=== PATIENT | male | born 1975 | race Caucasian/White ===

== ENCOUNTER 2020-11-26 16:36 | Emergency (ER) | payer MEDICAID, SELFPAY ==
[2020-11-26 16:45] VITALS: BP 140/95; PULSE 103; RESP 16; TEMP 37.2; O2SAT 97
--- NOTE | 2020-11-26 17:30 | W.ED.GENAD ---
Discharge Plan Disposition Patient Disposition: HOME Condition: Stable Discharge Details Clinical Impression: Cellulitis Primary Care Provider: Unknown,Unknown ED Provider: Linda Rider Home Meds and New Rx's Prescriptions: New cephalexin 500 mg capsule 500 mg PO QID 5 Days Qty: 20 RF: 0 sulfamethoxazole-trimethoprim [Bactrim DS] 800-160 mg tablet 1 tab PO BID 5 Days Qty: 10 RF: 0 No Action fluticasone propion-salmeterol [Advair Diskus] 250-50 mcg/dose Blister With Device 2 inh INHALATION BID RF: 0 albuterol 90 mcg/actuation Aerosol 90 mcg INHALATION RF: 0 Discharge Instructions Instructions: Cellulitis (ED) Additional Instructions: Area concerning for skin infection. Please take antibiotics as prescribed. Even if symptoms improve, please take the entire course. I would like for you to be reevaluated by your primary care either or Wednesday. If you are unable to be seen there, please return to the emergency department for reevaluation. If you develop fever/chills, spreading of the redness or other new/worsening symptoms please seek care urgently once again. Referrals: Milena Harmon [ [facility] STAFF PHYSICIAN] - Discharge Data Discharge Date/Time-TO BE ENTERED AT DEPARTURE: 11/26/20 17:45 Medical Decision Making Patient is a pleasant 45-year-old male presenting today with chief complaint of erythema and wound to the left elbow that spread up his left medial upper arm. States that he noticed this yesterday. Has bruising lateral to this where he was injured while playing with his son. States he may have had a small break in danyelle skin during that time. He has had no fevers/chills or systemic symptoms. Has noted that the erythema is streaking proximally. On exam, he appears nontoxic. 2+ distal pulses. Full ROM. He has an area of eryhtema with streaking proximally that begins inferior to the flexor side of the elbow . No swelling or fluctuacne to suggest abscess. Exam is not consistent with septicemia, infected joint or abscess. Discussed concern for cellulitis with the patient. Will cover with bactrim and keflex. I am concerned with how quickly he is reporting this is spreading. Will trial PO abx but advised f/u with PCP or reevaluation here in the next 2 days. Strict return precautions given. All of his questions and concerns were addressed, he is in agreement with this plan. HPI General Mode of arrival: ambulatory. Date/Time Provider Initiated Documentation: 11/26/20 17:30. Limitations to Documentation: no limitations. Information obtained by: patient and RN notes reviewed. History of Present Illness 45 year old M presents to the emergency department with the chief complaint of left arm cellulitis, described as moderate, Quality is described as aching, and is localized to the left and upper extremity. Patient extremity (proximally). Patient started experiencing this day(s) (1) and it has been constant. No relieving factors improve symptom(s), No exacerbating factors reported . Patient notes no other symptoms. and rash; denies fever/chills. Patient did receive the following treatments prior to arrival, none Related Data Home Medications Medication Instructions Recorded Confirmed albuterol 90 mcg INHALATION 11/26/20 cephalexin 500 mg PO QID 5 Days #20 cap 11/26/20 fluticasone propion-salmeterol 2 inh INHALATION BID 11/26/20 11/26/20 [Advair Diskus] sulfamethoxazole-trimethoprim 1 tab PO BID 5 Days #10 tab 11/26/20 [Bactrim DS] Previous Rx's Medication Instructions Recorded cephalexin 500 mg PO QID 5 Days #20 cap 11/26/20 sulfamethoxazole-trimethoprim 1 tab PO BID 5 Days #10 tab 11/26/20 [Bactrim DS] Allergies Allergy/AdvReac Type Severity Reaction Status Date / Time No Known Allergies Allergy Unverified 11/26/20 16:53 General Stated Complaint: Cellulitis NANCY: 4 Review of Systems Constitutional Constitutional: Reports as per HPI, Denies chills and Denies fever(s) Musculoskeletal Musculoskeletal: Reports as per HPI Integumentary/Breasts Skin/Breast: Reports as per HPI Neurologic Neurologic: Reports as per HPI, Denies sensory deficit and Denies paresthesias [facility] Social History Smoking/Tobacco Use Status: Current every day Smoking risk assessment performed?: Yes Alcohol Intake: former Drug use: Never Substance use type: does not use Do you feel safe at home: Yes Exam Const General: cooperative, healthy appearing, comfortable, no acute distress and well developed Nutritional Appearance: average body habitus and well nourished Orientation: alert and awake Resp Effort & Inspection: normal respiratory effort, able to speak in complete sentences and no respiratory distress Auscultation: clear to auscultation bilaterally Cardio Rate: regular rate Rhythm: regular rhythm Heart Sounds: S1 normal and S2 normal Skin General skin exam: erythema Neuro General: patient alert and patient awake Cognition: normal cognition Speech: speech normal Gait: normal gait Sensory Exam: no sensory deficits noted Extrem Shoulder/upper arm images: 1. Area of erythemea. Dominga cuadras bruising lateral to this, does not touch this area. In the distal more central area of the erythema is a raised area that is white. Looks similar to a blister. No purulent discharge, empty of fluid. No area of fluctuance to suggest a abscess. Area of streaking moving proximally toward the axilla Psych Appearance: grossly normal and well kempt Mental Status: mental status grossly normal Speech and Movement: speech and movement normal Course Vital Signs Vital signs: Vital Signs Temperature 37.2 C 11/26/20 16:45 Pulse 103 H 11/26/20 16:45 Respiratory Rate 16 11/26/20 16:45 Blood Pressure 140/95 H 11/26/20 16:45 Pulse Oximetry 97 11/26/20 16:45 Temperature 37.2 C 11/26/20 16:45 Temperature Source Skin 11/26/20 16:45 Pulse 103 H 11/26/20 16:45 Respiratory Rate 16 11/26/20 16:45 Blood Pressure 140/95 H 11/26/20 16:45 Blood Pressure Position Sitting 11/26/20 16:45 Pulse Oximetry 97 11/26/20 16:45 Oxygen Delivery Method Room Air 11/26/20 16:45 Oxygen Flow Rate 0 11/26/20 16:45
[2020-11-26] MEDS: Cephalexin 500 MG CAP PO (17:38)
[2020-11-26] MEDS: Sulfameth/Trimeth DS TAB 1 TAB PO (17:38)
== END 2020-11-26 17:45 | disposition home or self-care (01) ==
PROVIDERS: Emergency Provider Physician Assistant
DX: L03.114 Cellulitis of left upper limb (principal)
CPT/HCPCS: 99283